=== PATIENT | male | born 1980 | race African-American/Black ===

== ENCOUNTER 2019-06-21 19:31 | Inpatient (IN) | payer OTHER ==
[~2019-06-21] VITALS: Ht 172.7 cm; Wt 136.1 kg
[2019-06-21 19:55] VITALS: Ht 172.7 cm; Wt 136.1 kg
--- NOTE | 2019-06-21 19:55 | NUR ---
PT PRESENTED TO ED BY SELF FOR C/O GENERALIZED CHEST PAIN, INTERMITTENT SOB, AND NAUSEA SINCE 4 PM TODAY. PT A&0X4, SPEAKING FULL CLEAR SENTENCES. PT BREATHING EVEN AND UNLABORED. PT DESCRIBES CP PRESSURE AND TIGHTNESS. PT DENIES CURRENT NAUSEA OR SOB. PT AMBULATORY WITH STEADY GAIT. AWAITING MSE. CM AND [address] WILL CONTINUE TO MONITOR
[2019-06-21 20:47] LABS: BASOPHIL % 0.4 % (0-2); PLATELET COUNT 334 x10^3mcL (130-400)
[2019-06-21 20:57] LABS: CALCIUM 9.9 mg/dL (8.5-10.1); CARBON DIOXIDE 27.6 mmol/L (21-32); CHLORIDE SERUM 102 mmol/L (98-107); CREATININE SERUM 1.1 mg/dL (0.7-1.3); GFR1 > 60 mL/min; GLUCOSE SERUM 105 mg/dL (74-106); POTASSIUM SERUM 3.8 mmol/L (3.5-5.1); SODIUM SERUM 139 mmol/L (136-145)
[2019-06-21 21:01] LABS: ALBUMIN 4.2 g/dL (3.4-5.0); ALKALINE PHOSPHATASE 57 U/L (46-116); ALT/SGPT 67 U/L (16-63); AST/SGOT 53 U/L (15-37); BILIRUBIN TOTAL 0.74 mg/dL (0.20-1.00); TOTAL PROTEIN, SERUM 7.8 g/dL (6.4-8.2)
[2019-06-21 23:01] LABS: AMPHETAMINE QUAL UR NONE DETECTED (See below)
--- NOTE | 2019-06-21 23:20 | NUR ---
PT TRANSFERED TO TELE AT THIS TIME BY MOHINI DALEY. PT TAKEN VIA GURNEY. GOOD AT BEDSIDE TO ASSUME CARE OF PT. TRANSPORT CM IN PLACE. PT AMBULATED FROM ED GURNEY TO TELE GURCLARKS POINT WITH STEADY GAIT. PT A&0X4, SPEAKING FULL CLEAR SENTENCES. BREATHING EVEN AND UNLABORED. IV INTACT WITH FLUSHES WITH NO COMPLICATIONS.
--- NOTE | 2019-06-21 23:23 | NUR ---
RECEIVED PT VIA GURNEY FROM E/D, ACCOMPANIED BY 2 RNs. PT A/A/O X 4, CALM, COOPERATIVE; C/O INTERMITTENT THROBBING H/A 3/10 (RECEIVED NITROPASTE @ E/D); WEARS CONTACT LENSES (W/ PT) AND GLASSES (NOT W/ PT). GENERALIZED WEAKNESS, BUT ABLE TO AMBULATE W/ SLOW, STEADY GAIT, FALL RISK PROTOCOL IN PLACE. ON TELE # 26, SR + ELEVATED T-WAVES, DENIES CHEST PAIN OR DISCOMFORT AT THIS TIME. SCD BY BEDSIDE. NO ACUTE RESPIRATORY DISTRESS NOTED. PT ADMITS TO SMOKING MARIJUANA 8GM/MO. IV SITE LAC 20G, CDI. ORIENTED PT TO ROOM, BED CONTROLS, CALL LIGHT SYSTEM. SIDE RAILS UP X 2, BED IN LOW POSITION. WILL ENDORSE TO THUY PINON.
[2019-06-21 23:35] LABS: T3 TOTAL 0.99 ng/mL
[2019-06-21 23:51] LABS: FREE T4 1.03 ng/dL (0.76-1.46); FREE THYROXINE INDEX 2.7 ug/dL (1.4-4.5)
[2019-06-22 00:02] VITALS: BP 119/80
--- NOTE | 2019-06-22 01:22 | NUR ---
Pharmacy called at this time to verify weight of 300 lbs.
--- NOTE | 2019-06-22 03:30 | NUR ---
Pt. noted to have an episode of vomitting large amount that was brown in color and noted to have food particles in it. Pt. was offered Zofran at this time, pt. refused saying that vomitting episode really helped. Offered pt. fluids at this time, a face towel to clean himself up and mouthwash at this time. Pt. at this time, felt relief, will continue to monitor pt. at this time.
[2019-06-22 03:41] LABS: BASOPHIL % 0.3 % (0-2); PLATELET COUNT 330 x10^3mcL (130-400); RED CELL DISTRIBUTION WIDTH 13.1 % (11.5-14.5)
[2019-06-22 03:55] LABS: CALCIUM 9.9 mg/dL (8.5-10.1); CHLORIDE SERUM 102 mmol/L (98-107); CREATININE SERUM 1.1 mg/dL (0.7-1.3); GFR1 > 60 mL/min; GLUCOSE SERUM 102 mg/dL (74-106); MAGNESIUM 1.6 mg/dL (1.8-2.4); PHOSPHOROUS 3.6 mg/dL (2.5-4.9); POTASSIUM SERUM 4.1 mmol/L (3.5-5.1); SODIUM SERUM 139 mmol/L (136-145)
--- NOTE | 2019-06-22 04:11 | NUR ---
Lab called for critical results of Trop - 14.152 at this time. MD on -call made aware, Plan of Care is to continue to monitor, since Lovenox has been given and next dose will be given as ordered at this time. MD also made aware that Mg level is low at 1.6, awaiting orders to be placed for coverage at this time. Will continue to monitor pt.
[2019-06-22 05:22] VITALS: BP 135/82
--- NOTE | 2019-06-22 05:24 | NUR ---
Pt. asleep for most of the shift, except the one time that pt. had large emesis. Pt. was offered Zofran, but pt. stated that he felt so much better after, and refused the zofran. Pt. did c/o of chest pain that was returning, offered pain medication, but pt. stated that he is okay at that time. Pt. lab results were reported to on-call MD, and stated that Lovenox is ordered, will continue to monitor pt. At this time, pt. stable no c/o of h/a, pain, or discomfort. Will continue to monitor pt. and endorse to next shift RN.
--- NOTE | 2019-06-22 06:24 | NUR ---
Spoke to DR. sanchez in the hallway at this time, and informed him of the low mag level. . states that the 2nd Year will be on this case in the morning, unless emergent, we can just leave it for the 2nd year. Will continue to monitor pt. and endorse to next shift at this time.
[2019-06-22 07:33] LABS: CHOLESTEROL/HDL RATIO 5.9
--- NOTE | 2019-06-22 07:50 | NUR ---
RECEIVED PATIENT RESTING IN BED, NO ACUTE DISTRESS NOTED. PATIENT A/OX4, DENIES HEADACHE. TELE MONITOR IN PLACE, DENIES CHEST PAIN. DENIES SOB, ON ROOM AIR, LUNG SOUNDS CTA. PATIENT VOIDS FREELY. MILD GENERALIZED WEAKNESS. NS IV INFUSING TO LAC AT 70ML/HR, IV SITE CDI&PATENT, NO S/S OF INFILTRATION. CALL LIGHT WITHIN REACH, BED IN LOW POSITION, WILL CONTINUE TO MONITOR.
[2019-06-22 08:52] VITALS: BP 134/63
--- NOTE | 2019-06-22 10:20 | NUR ---
CHENTE GARCIA AWARE PATIENTS MAG WAS 1.6.
--- NOTE | 2019-06-22 10:20 | NUR ---
DR. WESTFALL AWARE PATIENTS MAG WAS 1.6. WILL CARRY OUT ANY NEW ORDERS.
--- NOTE | 2019-06-22 11:54 | NUR ---
DR. WESTFALL MADE AWARE OF ELEVATED TROPONIN (35.771). NO FURTHER ORDERS AT THIS TIME.
[2019-06-22 13:17] VITALS: BP 140/93
--- NOTE | 2019-06-22 16:01 | NUR ---
PATIENT RESTING IN BED COMFORTABLY, WATCHING TV. PATIENT DENIES ANY CHEST PAIN. DENIES HEADACHE OR DIZZINESS, NO ACUTE DISTRESS NOTED. ALL NEEDS MET AT THIS TIME, CALL LIGHT WITHIN REACH. BED IN LOW POSITION FOR SAFETY.
[2019-06-22 17:39] VITALS: BP 145/91
--- NOTE | 2019-06-22 18:53 | NUR ---
PATIENT RESTING IN BED, NO ACUTE DISTRESS NOTED PATIENT DENIES CP. DENIES MEDINA & DIZZINESS. NO RESP DISTRESS NOTED, PATIENT ON ROOM AIR. IV TO LAC CDI & PATENT, NO S/S OF INFILTRATION. CALL LIGHT WITHIN REACH, BED IN LOW POSITION. WILL ENDORSE REPORT TO NIGHT RN.
--- NOTE | 2019-06-22 19:40 | NUR ---
Awake and verbally responsive. No respiratory distress noted on room air. Denies pain. Denies n/v. Will cont.to monitor. Call light within reach.
[2019-06-22 21:33] VITALS: BP 138/83
--- NOTE | 2019-06-23 04:03 | NUR ---
Afebrile. No significant change in condition noted. Denies chest pain. No SOB noted. In no apparent distress.
[2019-06-23 05:18] VITALS: BP 128/84
[2019-06-23 06:53] LABS: BASOPHIL % 0.7 % (0-2); PLATELET COUNT 288 x10^3mcL (130-400); RED CELL DISTRIBUTION WIDTH 13.4 % (11.5-14.5)
--- NOTE | 2019-06-23 07:30 | NUR ---
PT IS AAOX4. LUNG SOUNDS CTA. ON R/A. DENIES COUGH AND SOB. TELE [address] READING NSR. PT DENIES C/P, PRESSURE AND PALPTITATIONS. SKIN WARM, CDI, NO EDEMA. IVF RUNNING TO RH SITE WNL. NO S/S OF INFECTION OR INFILTRATION AT SITE. COVERED WITH CDI OCCLUSIVE DRESSING. PT DENIES PAIN AND DISCOMFORT. NO DISTRESS NOTED. CALL LIGHT WITHIN REACH. BED IN LOWEST POSITION. PT EDUCATED TO REPORT C/P, PRESSURE OR PALPITATIONS. PT VERBALIZED UNDERSTANDING.
[2019-06-23 07:37] LABS: CALCIUM 9.1 mg/dL (8.5-10.1); CARBON DIOXIDE 26.2 mmol/L (21-32); CHLORIDE SERUM 104 mmol/L (98-107); GFR1 > 60 mL/min; GLUCOSE SERUM 82 mg/dL (74-106); MAGNESIUM 1.9 mg/dL (1.8-2.4); POTASSIUM SERUM 4.2 mmol/L (3.5-5.1); SODIUM SERUM 139 mmol/L (136-145)
[2019-06-23 08:45] VITALS: BP 145/100
--- NOTE | 2019-06-23 08:45 | NUR ---
PT IS UP PACING IN ROOM WITH C/O THAT HE WANTS TO LEAVE RIGHT NOW. PT EDUCATED ON THE RISK AND BENEFITS. PT VERBALIZED UNDERSTANDING AND STATED THAT HE WILL STAY AND SEE THE NURSING FACULTY TODAY. B/P 145/100 (115), 71. PT DENIES C/P AND PRESSURE AT THIS TIME. WILL CONTINUE TO MONITOR.
--- NOTE | 2019-06-23 09:00 | NUR ---
DR. MENA MET AND MEDICAL TEAM MET WITH PT TO DISCUSS POC. PT WILL NEED TO BE SEEN BY THE BLADDER CHANGER BEFORE CLEARED FOR DISCHARGE. PT NEEDS TO AMBULATE HALLWAY SO ACTIVITY TOLERANCE CAN BE ASSESSED. PT AGREED WITH POC.
--- NOTE | 2019-06-23 09:18 | NUR ---
PT N/S LOCKED AND IS AMBULATED HALLWAY AT THIS TIME. PT HAS AMBULATED [facility] X2 AT THIS TIME WITH NO S/S OF C/P, PRESSURE OR PALPITATIONS. PT HAS STEADY GAIT AND NO C/O DIZZINESS.
--- NOTE | 2019-06-23 09:25 | NUR ---
PT BACK IN BED AFTER AMBULATING UNIT. IVF STARTED. SITE WNL. PT DENIES C/P AND PRESSURE. CALL LIGHT WITHIN REACH.
[2019-06-23 12:36] VITALS: BP 135/83
--- NOTE | 2019-06-23 12:51 | NUR ---
SPOKE TO DR. MENA, REMINDED HIM THAT THE PT NEEDS METROPOLOL EXTENDED RELEASE CANCELLED AND NEW ORDER FOR A SHORT ACTING DUE TO PT ON PUREE DIET AND E/R CAN NOT BE CRUSHED. DR. MENA STATED HE WILL ORDER THE SHORT ACTING.
--- NOTE | 2019-06-23 14:09 | NUR ---
DR. SORENSON MET WITH PT TO DISCUSS POC. PT IS TO HAVE ANGIOGRAM. DR. PUENTES WASN'T SURE IF WOULD BE SCHEDULED AT [facility] OR IF PT WILL NEED TO TRANFER TO ANOTHER FACILITY. PT AGREED WITH POC.
--- NOTE | 2019-06-23 15:23 | NUR ---
PT LEFT HOSPITAL AGAINST MEDICAL ADVICE OF DR. SORENSON. AMA FORM SIGNED AND PLACED IN PT'S CHART. IV CATH REMOVED FROM RH, SITE WNL. NO S/S OF INFECTION OR INFILTRATION AT SITE. AREA COVERED WITH GAUZE AND BANDAID. TELE 26 TAKEN OFF PT AND RETURNED TO BOAT TESTER. VS: T 98.0F, HR 74, RR 16, B/P 135/83, O2 SAT AT 98% ON R/A. PT DENIES C/P, PRESSURE AND PALPITATIONS WHEN LEAVING HOSPITAL. PT LEFT MEDICAL CARD AND WAS CONTACTED BY CELL PHONE AND MADE AWARE. PT STATED PLEASE JUST SHRED CARD. [facility] BIOCHE[employer] PROFESSOR WITNESSED REQUEST. CARD PLACED IN SHREDDER. ALL OTHER PERSONAL BELONGINGS TAKEN WITH PT.
--- NOTE | 2019-06-23 15:42 | NUR ---
INCIDENT REPORT FILLED OUT DUE TO PT LEAVING AMA. UNIQUE ID# [id number]
== END 2019-06-23 15:22 | disposition left against medical advice (07) | DRG 281 ==
LOC: ED 19:31 → DU 22:43
PROVIDERS: Emergency Medicine; ADMIT Family Medicine
DX: I21.4 Non-ST elevation (NSTEMI) myocardial infarction (principal); Z68.42 Body mass index [BMI] 45.0-49.9, adult; M62.82 Rhabdomyolysis; E83.42 Hypomagnesemia; R74.0 Nonspecific elevation of levels of transaminase and lactic acid dehydrogenase [LDH]; T46.5X6A Underdosing of other antihypertensive drugs, initial encounter; I10 Essential (primary) hypertension; F12.10 Cannabis abuse, uncomplicated; Z91.128 Patient's intentional underdosing of medication regimen for other reason
CPT/HCPCS: 83880; 84439; 85378; G0378; J1650; J1885; Q0092